=== PATIENT | male | born 1995 | race Two or more races ===

== ENCOUNTER 2019-08-29 15:50 | Inpatient (IN) | payer OTHER ==
[~2019-08-29] VITALS: Ht 172.7 cm; Wt 83.1 kg
[2019-08-29 16:30] LABS: HEMATOCRIT 44.6 % (42.0-52.0); HEMOGLOBIN 14.6 g/dl (13.5-17.5); MEAN CORPUSCULAR HGB CONC 32.7 g/dl (32.0-36.5); MEAN CORPUSCULAR VOLUME 82.4 fl (80.0-96.0); PLATELET COUNT, AUTOMATED 198 10^3/uL (150-450); RED BLOOD COUNT 5.41 10^6/uL (4.30-6.10); WHITE BLOOD COUNT 9.8 10^3/uL (4.0-10.0)
[2019-08-29 16:58] LABS: ACETAMINOPHEN LEVEL < 2.0 UG/ML (10.0-30.0); ALBUMIN 4.5 GM/DL (3.2-5.2); ALT/SGPT 34 U/L (12-78); BILIRUBIN,DIRECT 0.2 MG/DL (0.0-0.2); BILIRUBIN,TOTAL 0.6 MG/DL (0.2-1.0); BLOOD UREA NITROGEN 13 MG/DL (7-18); CALCIUM LEVEL 9.1 MG/DL (8.5-10.1); CARBON DIOXIDE LEVEL 25 MEQ/L (21-32); CHLORIDE LEVEL 106 MEQ/L (98-107); CREATININE FOR GFR 1.05 MG/DL (0.70-1.30); ETHYL ALCOHOL (ETHANOL) < 0.003 % (0.000-0.010); GLOMERULAR FILTRATION RATE > 60.0 (>60); GLUCOSE, FASTING 105 MG/DL (70-100); POTASSIUM SERUM 3.6 MEQ/L (3.5-5.1); SALICYLATE LEVEL < 1.7 MG/DL (5.0-30.0); SODIUM LEVEL 140 MEQ/L (136-145); TOTAL PROTEIN 8.1 GM/DL (6.4-8.2)
[2019-08-29 18:38] LABS: AMPHETAMINES LEVEL URINE NEGATIVE (NEGATIVE); BARBITURATES URINE NEGATIVE (NEGATIVE); BENZODIAZEPINES URINE NEGATIVE (NEGATIVE); CANNABINOIDS URINE NEGATIVE (NEGATIVE); COCAINE METABOLITE URINE NEGATIVE (NEGATIVE); METHADONE URINE NEGATIVE (NEGATIVE); OPIATES URINE POSITIVE (NEGATIVE); PHENCYCLIDINE URINE NEGATIVE (NEGATIVE)
[2019-08-29] MEDS ORDERED: MAALOX 30 ML SUSP *UDC PO PRN (19:45)
[2019-08-29] MEDS ORDERED: ACETAMINOPHEN TAB 650MG DOSE (2X325MG) PO PRN (19:45)
[2019-08-29] MEDS ORDERED: traZODone 50 MG TAB PO PRN (19:45)
[2019-08-29] MEDS ORDERED: MOM 30ML SUSPENSION UDC PO PRN (19:45)
[2019-08-29] MEDS: OLANZapine ORAL DISINTEGRATING TAB 5MG PO SCH (21:41)
[2019-08-29 23:26] VITALS: BP 123/58
[2019-08-30 06:56] VITALS: BP 114/66
[2019-08-30] MEDS: ARIPiprazole 2 MG TAB PO SCH (09:07)
--- NOTE | 2019-08-30 09:21 | MHHPEPDOC ---
General Date Of Admission: Aug 29, 2019 Legal Status: 9.39 (extend over the weekend) Chief Complaint "It was a bad situation. History of Present Illness HISTORY OF THE PRESENT ILLNESS: Patient is a 24 -year-old Other, male, who presented after reportedly being told by his that he she wanted a divorce. He reported that he became suicidal and attempted to overdose on several tablets, stopping himself in the middle set attempt. Reports no symptoms prior. General: Well dressed with good hygiene Speech: Spontaneous and fluid Thought processes: Linear and logical Thought content: Future orientated Abstract reasoning, and computation: Intact Description of associations: Intact Description of abnormal or psychotic thoughts:Denies any suicidal or homicidal ideation. Denies any auditory or visual hallucinations. Does not appear to be responding to internal stimuli. Does not appear to be endorsing any bizarre or paranoid ideation. Judgment: fair Insight: fair Orientation: Alert and orientated 3 Recent and remote memory: Intact Attention span and concentration: Intact Fund of knowledge: Adequate Mood: "okay" Affect: Euthymic with a full range Psychiatric Review of Systems Depression (2 or more weeks): depressed mood, denies Devika (4 or more days of): denies Psychosis: denies PTSD: denies Anxiety: situational anxiety, stressor related anxiety Past Psychiatric History Previous Psychiatric Diagnosis: depression as a child. Previous Psychiatric Admissions: one. At age 16. Suicide Attempts: denies. Psychiatric Follow-up: none. Psychiatric medications: none. Past Medical History Medical Problems none Family Medical/Psychiatric HX Psychiatric Disorders: No Addiction: No Suicide Attemps/Completions: No Addiction History denies Social History Abuse/Trauma:denies. Current Living Situation: lives alone. Education: HS. Employment: [id number]. Social Support: few, now. Legal: none noted. Marital: 1x year, recent divorce reques . Assessment 24-year-old man with likely adjustment reaction caught himself the middle of suicide attempt, will need observation likely Problem List Problems: (1) Suicidal ideation Status: Resolved Problem Specific Plan: Monitor Clinically (2) Adjustment reaction, depressive, brief Status: Resolved Problem Specific Plan: Monitor Clinically Problem Text: Therapy only (3) Situational disturbance Status: Acute Response to Treatment: Stable Problem Specific Plan: Monitor Clinically Initial Treatment Plan 1. Patient was admitted on a [9.39] status. 2. Complete history was obtained. 3. With patients permission, family will be contacted and database will be expanded. 4. Patients medication regimen will be reviewed and changed accordingly. 5. Patient will be provided with protected environment. 6. Patient will be treated with individual, group, and milieu therapies. 7. Patient will receive supportive psych-education. 8. Discharge planning will commence immediately. 9. Outpatient follow-up treatment will be strongly recommended. 10. The initial treatment plan will focus initially on: Risk for suicide. ESTIMATED LENGTH OF STAY: 1-3 DAYS. TIME SPENT COUNSELING AND COORDINATING INITIAL CARE: 20 minutes. Vital Signs Vital Signs Date Time Temp Pulse Resp B/P (MAP) Pulse Ox O2 Delivery O2 Flow Rate FiO2 08/30/19 06:56 97.8 86 14 114/66 (82) 98 Room Air Laboratory Data 24H Labs Laboratory Tests 2 08/29/19 16:13: Nucleated Red Blood Cells % (auto) 0.0, Anion Gap 9, Glomerular Filtration Rate > 60.0, Calcium Level 9.1, Total Bilirubin 0.6, Direct Bilirubin 0.2, Aspartate Amino Transf (AST/SGOT) 15, Alanine Aminotransferase (ALT/SGPT) 34, Alkaline Phosphatase 78, Total Protein 8.1, Albumin 4.5, Albumin/Globulin Ratio 1.3, Thyroid Stimulating Hormone (TSH) 1.730, Salicylates Level < 1.7L, Acetaminophen Level < 2.0L, Ethyl Alcohol Level < 0.003 08/29/19 18:03: Urine Opiates Screen POSITIVEH, Urine Methadone Screen NEGATIVE, Urine Barbiturates Screen NEGATIVE, Urine Phencyclidine Screen NEGATIVE, Urine Amphetamines Screen NEGATIVE, Urine Benzodiazepines Screen NEGATIVE, Urine Cocaine Metabolite Screen NEGATIVE, Urine Cannabinoids Screen NEGATIVE CBC/BMP Laboratory Tests 08/29/19 16:13 Medications No Active Prescriptions or Reported Meds Allergies Coded Allergies: No Known Allergies (Unverified , 08/29/19) MIKI GOODMAN DO Aug 30, 2019 09:21
--- NOTE | 2019-08-30 11:47 | HPEPDOC ---
General Date of Admission Aug 29, 2019 at 19:33 Date of Service: Aug 30, 2019 Attending Physician: ARIEL MACDONALD MD Chief Complaint The patient is a 24-year-old male admitted with a reason for visit of Unspecified Mood Disorder. Source: Patient Exam Limitations: No limitations Timing/Duration: 24 hours History of Present Illness 24 yo active man who was brought to the ED for evaluation after taking a total of 20mg of oxycodone with the intention to kill himself shortly after his who is also in the and currently residing in [place] asked him for a divorce. He reports a history of depression, anxiety and bipolar and prior hospitalization for SI but no prior suicide attempts. He otherwise denies any significant past medical history or taking medication at baseline. His oxycodone had been prescribed by his dentist for wisdom tooth pain and he had 6 pills total of 5mg each. He otherwise denies dizziness, prior illicit dug use or prescription drug abuse, without fever, chills, SOB, pain or nausea and emesis. ED evaluation yielded a tox screen that was positive for opiates with an otherwise normal CBC and BMP and he was admitted to the [facility] for suicide attem pt. Home Medications No Active Prescriptions or Reported Meds Allergies Coded Allergies: No Known Allergies (Unverified , 08/29/19) Past Medical History Medical History Patient reported history of depression, anxiety, bipolar and prior SI Family History Significant Family History: No pertinent family hx Social History * Smoker: Denies Alcohol: Denies Drugs: denies Recent Travel/Sick Contacts: Denies: Recent travel, Recent sick contacts Pets in the home: Cat(s) Psychosocial History: Anxiety, Bipolar, Decreased mood, Depression A-FIB/CHADSVASC A-FIB History Current/History of A-Fib/PAF?: No Current PO Anticoag Therapy: No Age/Risk Factor Scoring CHADSVASC: CHADSVASC Response (Comments) Value Age Risk Factor Age < 65 years old 0 Gender Risk Factor Male 0 Hx of CHF No 0 Hx of HTN No 0 Hx of Stroke/TIA/or VTE No 0 Hx of Diabetes No 0 Hx of Vascular Disease No 0 Total 0 Treatment Treatment ordered: NONE Reason Anticoagulant not given: Not indicated/[id number] Review of Systems Constitutional: Denies: Chills, Fever, Night Sweats Eyes: Denies: Pain, Vision change ENT: Denies: Head Aches, Ear Pain, Dysphagia Skin: Denies: Rash, Lesions, Breakdown Pulmonary: Denies: Dyspnea, Cough Cardiovascular: Denies: Chest Pain, Palpitations, Orthopnea, Paroxysmal Noc. Dyspnea, Lt Headedness Gastrointestinal: Denies: Nausea, Vomiting, Abdominal Pain, Diarrhea Genitourinary: Denies: Dysuria, Frequency, Incontinence, Retention Hematologic: Denies: Bruising, Bleeding Excessively Endocrine: Denies: Polydipsia, Polyphagia, Polyuria, Heat Intolerance, Cold Intolerance, Other Endocrine Sx Musculoskeletal: Denies: Neck Pain, Back Pain, Joint Pain, Muscle Pain, Spasms Neurological: Denies: Weakness, Numbness, Change in speech, Confusion Psych: Reports: Depression, Thoughts of Self Harm Physical Examination General Exam: Positive: Alert, No Acute Distress Eye Exam: Positive: PERRLA, Conjunctiva & lids normal, EOMI; Negative: Sclera icteric ENT Exam: Positive: Atraumatic, Mucous membr. moist/pink, Pharynx Normal Neck Exam: Positive: Supple; Negative: JVD, thyromegaly Chest Exam: Positive: Clear to auscultation, Normal air movement Heart Exam: Positive: Rate Normal, Regular Rhythm, Normal S1, Normal S2; Negative: Murmurs, Rubs Abdomen Exam: Positive: Normal bowel sounds, Soft; Negative: Tenderness, Hepatospenomegaly Extremity Exam: Positive: Normal pulses; Negative: Clubbing, Cyanosis, Edema Skin Exam: Positive: Nl turgor and temperature; Negative: Breakdown, Lesion Neuro Exam: Positive: Normal Gait, Normal Speech, Strength at 5/5 X4 ext, Normal Tone, Sensation Intact, Cranial Nerves 3-12 NL Psych Exam: Positive: Mental status NL, Oriented x 3, Other (flat affect) Vital Signs Vital Signs Date Time Temp Pulse Resp B/P (MAP) Pulse Ox O2 Delivery O2 Flow Rate FiO2 08/30/19 06:56 97.8 86 14 114/66 (82) 98 Room Air Laboratory Data Labs 24H Laboratory Tests 2 08/29/19 16:13: Nucleated Red Blood Cells % (auto) 0.0, Anion Gap 9, Glomerular Filtration Rate > 60.0, Calcium Level 9.1, Total Bilirubin 0.6, Direct Bilirubin 0.2, Aspartate Amino Transf (AST/SGOT) 15, Alanine Aminotransferase (ALT/SGPT) 34, Alkaline Phosphatase 78, Total Protein 8.1, Albumin 4.5, Albumin/Globulin Ratio 1.3, Thyroid Stimulating Hormone (TSH) 1.730, Salicylates Level < 1.7L, Acetaminophen Level < 2.0L, Ethyl Alcohol Level < 0.003 08/29/19 18:03: Urine Opiates Screen POSITIVEH, Urine Methadone Screen NEGATIVE, Urine Barbiturates Screen NEGATIVE, Urine Phencyclidine Screen NEGATIVE, Urine Amphetamines Screen NEGATIVE, Urine Benzodiazepines Screen NEGATIVE, Urine Cocaine Metabolite Screen NEGATIVE, Urine Cannabinoids Screen NEGATIVE CBC/BMP Laboratory Tests 08/29/19 16:13 Assessment/Plan 24 yo M with a history of anxiety, depression and patient reported bipolar not on any medications at baseline who is admitted to the [facility] after a suicide attempt with oxycodone that had been prescribed for his recently extracted wisdom teeth, in the setting of his who is stationed in [place] abruptly asking for divorce. Suicide attempt in the setting psychosocial stressor: -Treatment per primary psychiatry team The gentleman is otherwise healthy without any medical problems. Medicine will sign off at this time. Thank you for the consult. Problems (1) Suicidal ideation Status: Resolved Problem Specific Plan: Monitor Clinically (2) Adjustment reaction, depressive, brief Status: Resolved Problem Specific Plan: Monitor Clinically (3) Situational disturbance Status: Acute Response to Treatment: Stable Problem Specific Plan: Monitor Clinically Plan / VTE VTE Prophylaxis Ordered?: No VTE Exclusion Mechanical Proph: Low Risk for VTE VTE Exclusion Pharmacological: At Low Risk for VTE ARIEL MACDONALD MD Aug 30, 2019 11:12
[2019-08-30 17:20] VITALS: BP 138/81
[2019-08-30] MEDS: OLANZapine ORAL DISINTEGRATING TAB 5MG PO SCH (20:44)
[2019-08-31 06:28] VITALS: BP 136/62
[2019-08-31] MEDS: ARIPiprazole 2 MG TAB PO SCH (08:15)
[2019-08-31 16:27] VITALS: BP 124/82
--- NOTE | 2019-08-31 18:59 | MHIPNPDOC ---
[facility] Progress Note Progress Note DATE OF SERVICE: 08/31/19 HISTORY: As per ED report: "Reason for Referral Pt reports that he took 4 of the 6 oxycodone tablets that he was prescribed in a suicide attempt. Pt reports calling his leadership and reporting what he had done. Pt reports going to [facility] to be accessed. Pt reports to [facility] via ambulance for a MHE for the events stated above. Chief Complaint Pt reports that he has been in the for approximently 4 years. 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 Pt reports that he and his are both from the [facility] and they have been for 1 year however, they have been together for 9 years since Sophmore year in [place]. Pts currently lives in [facility]. Pt reports that she is finishing up her BA degree and has just inlisted in the where she will specialize in logistics. Pt lives on post in housing and not in the [facility]. Pt reports that earlier today around 11:00 A.M. pts asked if she could talk with him about something important. Pt reports that it was at that time his asked him for a divorce. Pt reports it was at that time the pt took 4 of the 6 oxycodone tablets that he was prescribed for his wisdom teeth surgery last week. Pt reports that he took them and then thought about it. Pt reports it was about noon that he contacted his IVETTE and then contacted his . Pt reports that his IVETTE came and got him and took him to [facility] for an assessment. Pt then came to [facility] by ambulance for a MHE. Pt reports that he suffers from depression/anxiety/bipolar disorder since 16 years of age. Pt reports at that time he was hospitalized at a facility in [facility], pt can not remember the name of the facility just that he was there due to SI. Pt reports that this stay was roughly one week however, pt does state that it was a misunderstanding. Pts story is very difficult to follow however, it ended with pt reported it looking like he was going to hang himself on the fan in his bedroom with a wire peddle for his keyboard. Pt seems to minimize the events that took place earlier today, reports feeling SI however, states that he no longer feels SI. Pt denies HI/AH/VH. Reports that his appitite and sleep are pretty good. Pt reports that the has messed up his pay for awhile now, pt reports that they owe him roughly $9,000.00 in back pay. However, pt reports that he owes alot of debt and will not disclose to tw why. According to Behavioral Health notes, pt has been over spending as recent as this week." VITAL SIGNS: See below. NEW TEST RESULTS: See below CURRENT MEDICATIONS: See below. MENTAL STATUS EXAMINATION: Patient is a 24 year old male, who is alert, dressed in hospital clothes. Speech: Is normal in r/t/v, is spontaneous and fluent Language skills are intact Thought processes including: linear and coherent. Thought content: denies SI, denies HI, denies thought delusions, admits to have depressive, painful thoughts. Description of associations: intact Description of abnormal or psychotic thoughts: denies thought delusions, denies TAV hallucinations Judgment: fair Insight: fair. Orientation: x 3 Recent and remote memory: intact. Attention span and concentration: good. Language: adequate Fund of knowledge: average Mood: sad/depressed Affect: congruent with mood DIAGNOSES: 1. Suicidal ideation 2. Adjustment reaction, depressive, brief 3. Situational disturbance MANAGEMENT PLAN: As per Dr. Gusman TIME SPENT: 20 minutes. Vital Signs Vital Signs Date Time Temp Pulse Resp B/P (MAP) Pulse Ox O2 Delivery O2 Flow Rate FiO2 08/31/19 06:28 97.9 79 16 136/62 (86) 08/30/19 06:56 98 Room Air Current Medications Current Medications Medications (Trade) Dose Ordered Sig/Reyes Route PRN Reason Start Time Stop Time Status Last Admin Dose Admin Acetaminophen (Tylenol Tab) 650 mg Q6HP PRN PO HEADACHE or DISCOMFORT 08/29/19 19:45 Al Hydrox/Mg Hydrox/Simethicone (Mylanta) 30 ml Q4HP PRN PO HEARTBURN/INDIGESTION 08/29/19 19:45 Aripiprazole (AbiLIFY) 2 mg QAM PO 08/30/19 09:00 08/31/19 08:15 Home Med (Med Rec Complete!) ASDIRECTED XX 08/29/19 22:15 08/29/19 22:07 DC Magnesium Hydroxide (Milk Of Magnesia) 30 ml DAILYPRN PRN PO CONSTIPATION 08/29/19 19:45 Olanzapine (ZyPREXA ZYDIS) 10 mg QHS PO 08/29/19 21:00 08/30/19 20:44 Trazodone HCl (Desyrel) 50 mg QHSP PRN PO INSOMNIA 08/29/19 19:45 Allergies Coded Allergies: No Known Allergies (Unverified , 08/29/19) SHANELLE IVERSON MD Aug 31, 2019 11:51
[2019-08-31] MEDS: OLANZapine ORAL DISINTEGRATING TAB 5MG PO SCH (21:19)
[2019-09-01 06:49] VITALS: BP 108/86
[2019-09-01] MEDS: ARIPiprazole 2 MG TAB PO SCH (08:24)
--- NOTE | 2019-09-01 11:55 | MHIPNPDOC ---
[facility] Progress Note Progress Note DATE OF SERVICE: 09/01/19 HISTORY: As per ED report: "Reason for Referral Pt reports that he took 4 of the 6 oxycodone tablets that he was prescribed in a suicide attempt. Pt reports calling his leadership and reporting what he had done. Pt reports going to [facility] to be accessed. Pt reports to [facility] via ambulance for a MHE for the events stated above. Chief Complaint Pt reports that he has been in the for approximently 4 years. 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 Pt reports that he and his are both from the [facility] and they have been for 1 year however, they have been together for 9 years since Sophmore year in [employer]. Pts currently lives in [facility]. Pt reports that she is finishing up her BA degree and has just inlisted in the where she will specialize in logistics. Pt lives on post in housing and not in the [facility]. Pt reports that earlier today around 11:00 A.M. pts asked if she could talk with him about something important. Pt reports that it was at that time his asked him for a divorce. Pt reports it was at that time the pt took 4 of the 6 oxycodone tablets that he was prescribed for his wisdom teeth surgery last week. Pt reports that he took them and then thought about it. Pt reports it was about noon that he contacted his IVETTE and then contacted his . Pt reports that his IVETTE came and got him and took him to [facility] for an assessment. Pt then came to [facility] by ambulance for a MHE. Pt reports that he suffers from depression/anxiety/bipolar disorder since 16 years of age. Pt reports at that time he was hospitalized at a facility in [facility], pt can not remember the name of the facility just that he was there due to SI. Pt reports that this stay was roughly one week however, pt does state that it was a misunderstanding. Pts story is very difficult to follow however, it ended with pt reported it looking like he was going to hang himself on the fan in his bedroom with a wire peddle for his keyboard. Pt seems to minimize the events that took place earlier today, reports feeling SI however, states that he no longer feels SI. Pt denies HI/AH/VH. Reports that his appitite and sleep are pretty good. Pt reports that the has messed up his pay for awhile now, pt reports that they owe him roughly $9,000.00 in back pay. However, pt reports that he owes alot of debt and will not disclose to tw why. According to Behavioral Health notes, pt has been over spending as recent as this week." VITAL SIGNS: See below. NEW TEST RESULTS: See below CURRENT MEDICATIONS: See below. MENTAL STATUS EXAMINATION: Patient is a 24 year old male, who is alert, dressed in hospital clothes. Speech: Is normal in r/t/v, is spontaneous and fluent Language skills are intact Thought processes including: linear and coherent. Thought content: denies SI, denies HI, denies thought delusions, he still has some sad thoughts, less intense and less frequent Description of associations: intact Description of abnormal or psychotic thoughts: denies thought delusions, denies TAV hallucinations Judgment: fair Insight: fair. Orientation: x 3 Recent and remote memory: intact. Attention span and concentration: good. Language: adequate Fund of knowledge: average Mood: sad/depressed Affect: congruent with mood DIAGNOSES: 1. Suicidal ideation 2. Adjustment reaction, depressive, brief 3. Situational disturbance ASSESSMENT: He is improved, he is smiling and at times joking. He feels that his family might not like him at this time. He feels anxious about how his friends and family feel about his hospitalization MANAGEMENT PLAN: As per Dr. Gusman TIME SPENT: 20 minutes. Vital Signs Vital Signs Date Time Temp Pulse Resp B/P (MAP) Pulse Ox O2 Delivery O2 Flow Rate FiO2 09/01/19 06:49 96.8 67 16 108/86 (93) Room Air 08/30/19 06:56 98 Current Medications Current Medications Medications (Trade) Dose Ordered Sig/Reyes Route PRN Reason Start Time Stop Time Status Last Admin Dose Admin Acetaminophen (Tylenol Tab) 650 mg Q6HP PRN PO HEADACHE or DISCOMFORT 08/29/19 19:45 Al Hydrox/Mg Hydrox/Simethicone (Mylanta) 30 ml Q4HP PRN PO HEARTBURN/INDIGESTION 08/29/19 19:45 Aripiprazole (AbiLIFY) 2 mg QAM PO 08/30/19 09:00 09/01/19 08:24 Home Med (Med Rec Complete!) ASDIRECTED XX 08/29/19 22:15 08/29/19 22:07 DC Magnesium Hydroxide (Milk Of Magnesia) 30 ml DAILYPRN PRN PO CONSTIPATION 08/29/19 19:45 Olanzapine (ZyPREXA ZYDIS) 10 mg QHS PO 08/29/19 21:00 08/31/19 21:19 Trazodone HCl (Desyrel) 50 mg QHSP PRN PO INSOMNIA 08/29/19 19:45 Allergies Coded Allergies: No Known Allergies (Unverified , 08/29/19) SHANELLE IVERSON MD Sep 01, 2019 11:55
[2019-09-01 16:32] VITALS: BP 128/80
[2019-09-01] MEDS: OLANZapine ORAL DISINTEGRATING TAB 5MG PO SCH (22:17)
[2019-09-02 06:41] VITALS: BP 142/98
[2019-09-02] MEDS: ARIPiprazole 2 MG TAB PO SCH (08:47)
[2019-09-02 15:47] VITALS: BP 124/69
[2019-09-02] MEDS: OLANZapine ORAL DISINTEGRATING TAB 5MG PO SCH (21:00)
[2019-09-03] MEDS: ARIPiprazole 2 MG TAB PO SCH (08:45)
--- NOTE | 2019-09-03 09:33 | MHDSPDOC ---
[facility] Discharge Summary Discharge Summary DATE OF ADMISSION: Aug 29, 2019 at 19:33 DATE OF DISCHARGE: Sep 03, 2019 at 13:53 DISCHARGE DIAGNOSES: See Problem list below REASON FOR ADMISSION: 24-year-old man admitted after occupational stressors cause to make suicidal statements CONSULTANTS INVOLVED:[ None (basic hospitalist screening)] TREATMENT AND PROGRESS ON THE UNIT : Medication changes: initially tried without medication, however, was eventually turn into milligrams of Abilify and made good progress Behavior on unit:, friendly and amenable Treatment attendance: attended well Notable issues on presentation: initially was can be discharged earlier, however, the patient reported that he wants to stay a bit longer in order to maximize his benefit State on discharge: [improved] DISCHARGE ASSESSMENT: The patient a 24 year old man, with likely adjustment problems, presented to [facility], where they are treated with appropriate agents and conservative management. Legal status considerations: The patient at the time of discharge did not meet criteria for involuntary admission/extension due to having a [normal] mental status exam, [fair] insight into the situation, They are engaged in the discharge process, as well as being friendly and amenable in behavioral control and havent been engaging in any observed concerning behavior or ideation recently. They decline voluntary extension/admission at this time and must be discharged in good roni, as Im unable to make a case for holding the patient against their will. They may have historical risk factors of admissions and other interactions with psychiatry however, those are not modifiable from a clinical perspective. The patient will need to be discharged in good roni. MENTAL STATUS EXAMINATION ON DISCHARGE: [General: Well dressed with good hygiene Speech: Spontaneous and fluid Thought processes: Linear and logical Thought content: Future orientated Abstract reasoning, and computation: Intact Description of associations: Intact Description of abnormal or psychotic thoughts:Denies any suicidal or homicidal ideation. Denies any auditory or visual hallucinations. Does not appear to be responding to internal stimuli. Does not appear to be endorsing any bizarre or paranoid ideation. Judgment: fair Insight: fair Orientation: Alert and orientated 3 Recent and remote memory: Intact Attention span and concentration: Intact Fund of knowledge: Adequate Mood: "okay" Affect: Euthymic with a full range] PLAN/FOLLOWUP ARRANGEMENTS: Follow up appointments made (PCP and MH in 5 days of D/C date) and safety plan completed. Safety Planning aspects completed prior to discharge [SAFE ACT reported on initial invol admission in ER] [DOD: placed in barracks under watch with order] [DOD: Weapons Profile 30 days] [Medication supplies limited to 7 days with 4 refills to prevent accumulation to OD] [RN reviewed crisis hotline information and other aspects to empower patient to access care in interim before next appointment.] The amount of time spent in the coordination of care for this patient was approximately 30 minutes. Vital Signs/I&Os Vital Signs Date Time Temp Pulse Resp B/P (MAP) Pulse Ox O2 Delivery O2 Flow Rate FiO2 09/03/19 08:33 Room Air 09/02/19 15:47 98.9 71 16 124/69 (87) 08/30/19 06:56 98 Medications Scheduled Aripiprazole (Abilify) 2 Mg Tablet, 2 MG PO QAM for mood for 7 Days, #7 Allergies Coded Allergies: No Known Allergies (Unverified , 08/29/19) Problems (1) Suicidal ideation Status: Resolved (2) Adjustment reaction, depressive, brief Status: Resolved (3) Situational disturbance Status: Acute Response to Treatment: Stable Plan / VTE VTE Prophylaxis Ordered?: No MIKI GOODMAN DO Sep 03, 2019 09:33
[2019-09-03] MEDS ORDERED: ABIL1TAB13 PO (10:41)
== END 2019-09-03 13:53 | disposition home or self-care (01) | DRG 881 ==
LOC: M ED 15:50 → M ED INP 19:33 → M PSY 22:37
PROVIDERS: ADMIT Psychiatry & Neurology Addiction Medicine; ATTEND Psychiatry & Neurology Addiction Medicine
DX: F43.21 Adjustment disorder with depressed mood (principal); T40.602A Poisoning by unspecified narcotics, intentional self-harm, initial encounter

== ENCOUNTER 2020-06-23 00:34 | Inpatient (IN) | payer OTHER ==
[~2020-06-23] VITALS: Ht 172.7 cm; Wt 84.2 kg
[~2020-06-23 00:34] MED LIST: ABIL1TAB13 PO
[2020-06-23 01:46] LABS: HEMOGLOBIN 14.4 g/dl (13.5-17.5); MEAN CORPUSCULAR HEMOGLOBIN 26.5 pg (27.0-33.0); MEAN CORPUSCULAR VOLUME 82.9 fl (80.0-96.0); PLATELET COUNT, AUTOMATED 180 10^3/uL (150-450); RED BLOOD COUNT 5.43 10^6/uL (4.30-6.10); WHITE BLOOD COUNT 9.1 10^3/uL (4.0-10.0)
[2020-06-23 02:24] LABS: AMPHETAMINES LEVEL URINE NEGATIVE (NEGATIVE); BARBITURATES URINE NEGATIVE (NEGATIVE); BENZODIAZEPINES URINE NEGATIVE (NEGATIVE); CANNABINOIDS URINE POSITIVE (NEGATIVE); COCAINE METABOLITE URINE NEGATIVE (NEGATIVE); METHADONE URINE NEGATIVE (NEGATIVE); OPIATES URINE NEGATIVE (NEGATIVE); PHENCYCLIDINE URINE NEGATIVE (NEGATIVE)
[2020-06-23 02:36] LABS: ACETAMINOPHEN LEVEL < 2.0 UG/ML (10.0-30.0); ALBUMIN 4.5 GM/DL (3.2-5.2); ALT/SGPT 48 U/L (12-78); BILIRUBIN,DIRECT 0.1 MG/DL (0.0-0.2); BILIRUBIN,TOTAL 0.6 MG/DL (0.2-1.0); BLOOD UREA NITROGEN 14 MG/DL (7-18); CALCIUM LEVEL 9.1 MG/DL (8.5-10.1); CARBON DIOXIDE LEVEL 27 MEQ/L (21-32); CHLORIDE LEVEL 111 MEQ/L (98-107); CREATININE FOR GFR 1.11 MG/DL (0.70-1.30); ETHYL ALCOHOL (ETHANOL) < 0.003 % (0.000-0.010); GLOMERULAR FILTRATION RATE > 60.0 (>60); GLUCOSE, FASTING 98 MG/DL (70-100); SALICYLATE LEVEL < 1.7 MG/DL (5.0-30.0); SODIUM LEVEL 143 MEQ/L (136-145); TOTAL PROTEIN 7.9 GM/DL (6.4-8.2)
[2020-06-23 10:51] LABS: RSV AMPLIFICATION NEGATIVE (NEGATIVE)
[2020-06-23] MEDS ORDERED: traZODone 50 MG TAB PO PRN (11:45)
[2020-06-23] MEDS ORDERED: MAALOX 30 ML SUSP *UDC PO PRN (11:45)
[2020-06-23] MEDS ORDERED: MOM 30ML SUSPENSION UDC PO PRN (11:45)
[2020-06-23] MEDS ORDERED: ACETAMINOPHEN TAB 650MG DOSE (2X325MG) PO PRN (11:45)
[2020-06-23 13:43] VITALS: BP 154/86
[2020-06-24 06:00] VITALS: BP 146/82
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
[2020-06-24 17:52] VITALS: BP 132/81
--- NOTE | 2020-06-24 18:16 | HPEPDOC ---
General Date of Admission Jun 23, 2020 at 11:44 Date of Service: Jun 24, 2020 Chief Complaint The patient is a 25-year-old male admitted with a reason for visit of Unspecified Depressive Disorder. Source: Patient Exam Limitations: No limitations History of Present Illness Patient is 25 years old male without significant past medical history presented hospital with suicidal ideation. The patient reportedly had arguments with current girlfriend. They were on the verge of breaking up. It hurt him but he reports that he never attempted suicide. He was allegedly putting a towel around his neck as the allegation from his girlfriend goes and police were called and he was brought to the hospital. During monitoring 3 patient denied fever, chills, nausea, vomiting, chest pain, palpitations, diarrhea or dysuria Home Medications No Active Prescriptions or Reported Meds Allergies Coded Allergies: No Known Allergies (Unverified , 08/29/19) Past Medical History Medical History No medical history Family History Patient stated that both parents are healthy Social History * Smoker: Denies Alcohol: Denies Drugs: marijuana A-FIB/CHADSVASC A-FIB History Current/History of A-Fib/PAF?: No Current PO Anticoag Therapy: No Review of Systems Constitutional: Denies: Chills Eyes: Denies: Pain ENT: Denies: Head Aches Skin: Denies: Rash, Lesions Pulmonary: Denies: Dyspnea, Cough Cardiovascular: Denies: Chest Pain Gastrointestinal: Denies: Nausea Genitourinary: Denies: Dysuria Hematologic: Denies: Bruising Endocrine: Denies: Polydipsia Musculoskeletal: Denies: Neck Pain Neurological: Denies: Weakness Psych: Reports: Depression Physical Examination General Exam: Positive: Alert, Cooperative ENT Exam: Positive: Atraumatic Neck Exam: Positive: Supple; Negative: JVD Chest Exam: Positive: Clear to auscultation Heart Exam: Positive: Rate Normal Telemetry: Positive: No significant arrhythmia Abdomen Exam: Positive: Normal bowel sounds Extremity Exam: Negative: Clubbing, Cyanosis Skin Exam: Positive: Nl turgor and temperature Neuro Exam: Positive: Normal Gait Psych Exam: Positive: Oriented x 3 Vital Signs Vital Signs Date Time Temp Pulse Resp B/P (MAP) Pulse Ox O2 Delivery O2 Flow Rate FiO2 06/24/20 17:52 99.0 55 16 132/81 (98) 97 06/23/20 12:00 Room Air Assessment/Plan Patient is 25 years old male without significant past medical history presented hospital with suicidal ideation. The patient reportedly had arguments with current girlfriend. They were on the verge of breaking up. It hurt him but he reports that he never attempted suicide. He was allegedly putting a towel around his neck as the allegation from his girlfriend goes and police were called and he was brought to the hospital. During monitoring 3 patient denied fever, chills, nausea, vomiting, chest pain, palpitations, diarrhea or dysuria Problems (1) Suicidal ideation Status: Resolved Problem Text: Deferred treatment psych team Plan / VTE VTE Prophylaxis Ordered?: No VTE Exclusion Mechanical Proph: Low Risk for VTE LAMINE TRAMMELL DO Jun 24, 2020 18:16
[2020-06-25 06:32] VITALS: BP 141/69
--- NOTE | 2020-06-25 18:33 | MHIPN ---
PROGRESS NOTE DATE: 06/25/2020 SUBJECTIVE: "I have been doing fine. 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 Reportedly he had arguments with his current girlfriend. They were on the verge of breaking up. His girlfriend alleged that he had put a towel around his neck but the patient denies there was any intention of suicide. He has had one previous psychiatric hospitalization. Currently he is cooperative, attending groups and activities. He reports his sleep is good. MENTAL STATUS EXAMINATION: Casually dressed in neat clothes, cooperative. He made good eye contact. Mood is euthymic. Affect is appropriate for the mood. Speech, rate, rhythm and volume are good. Thought process lineal goal directed. Denied auditory or hallucinations. Denies suicidal or homicidal ideas. Insight and judgment are good. VITAL SIGNS: Temperature 99.1, pulse is 83, respirations 16, blood pressure 141/69, pulse oximetry 97%. LABORATORY STUDIES: CBC within normal limits. CMP within normal limits. Toxicology is positive for cannabis. DIAGNOSIS: 1. Depressive mood disorder, unspecified. 2. Rule out adjustment disorder with depressed mood. PLAN: Observe him for 24 hours and discharge him. ESTIMATED LENGTH OF STAY: 24 hours. TIME TAKEN FOR THE PATIENT: Twenty-five minutes. [facility]
[2020-06-26 06:38] VITALS: BP 133/83
--- NOTE | 2020-06-26 09:55 | MHDS ---
[facility] DISCHARGE SUMMARY DATE OF ADMISSION: 06/23/2020 DATE OF DISCHARGE: 06/26/2020 DIAGNOSIS: Depressive disorder unspecified, rule out adjustment disorder with depressed mood. 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 HISTORY OF PRESENT ILLNESS/PAST PSYCHIATRIC HISTORY/SUICIDAL HISTORY/DRUG AND ALCOHOL HISTORY/MEDICAL HISTORY/ PERSONAL HISTORY: For details, please refer to the initial evaluation. COURSE IN THE HOSPITAL: Patient reported he was depressed after he broke up with his current girlfriend, but never thought of killing himself. Reported he is not depressed. He does not have any vegetative signs of depression. Denies any history of claudy. He was given p.r.n. medication. He continued with individual, group and milieu therapy. Patient improved. His suicidal thoughts resolved. He was interacting well with peers and staff. There were no side effects from any medications. He was stable at the time of discharge. MENTAL STATUS EXAMINATION: Casually dressed male in neat clothes. Cooperative. Made good eye contact. Mood is euthymic. Affect is appropriate for the mood. Speech rate, rhythm, volume are good. Thought process linear, goal directed. Denied auditory or visual hallucinations. Denied suicidal or homicidal ideas. Insight and judgment are good. VITAL SIGNS: Temperature 98, pulse 64, respirations 16, blood pressure 133/83, pulse oximetry 100% LABS: CBC within normal limits. CMP within normal limits. Toxicology: Positive for cannabis. DISCHARGE PLAN: He will be discharged home, followed up at [employer], but he is going to go to [place] with his mother as he is going to be discharged from the . DISCHARGE MEDICATIONS: Patient is currently on no medications. TIME SPENT ON DISCHARGE: Less than 30 minutes.
== END 2020-06-26 10:53 | disposition home or self-care (01) | DRG 881 ==
LOC: M ED 00:34 → M ED INP 11:44 → M PSY 13:06
PROVIDERS: ADMIT Psychiatry & Neurology Psychiatry; ATTEND Psychiatry & Neurology Psychiatry
DX: F32.9 Major depressive disorder, single episode, unspecified (principal); R45.851 Suicidal ideations; F43.21 Adjustment disorder with depressed mood; Z63.0 Problems in relationship with spouse or partner; Z91.5 Personal history of self-harm; Z62.811 Personal history of psychological abuse in childhood; Z81.8 Family history of other mental and behavioral disorders